=== PATIENT | female | born 1995 | race American Indian/Alaskan Native ===

== ENCOUNTER 2019-10-19 13:55 | Emergency (ER) | payer SELFPAY ==
--- NOTE | 2019-10-19 15:49 | Event Note ---
ED Screening Note ED Screening Note: states she is 6 weeks , [facility] is her NEWS ASSISTANT states she is having vaginal bleeding that began today no abd pain /P:2/A:0 PMHx: none no allergies to meds LNMP september 03 This initial assessment/diagnostic orders/clinical plan/treatment(s) is/are subject to change based on patients health status, clinical progression and re- assessment by fellow clinical providers in the ED. Further treatment and workup at subsequent clinical providers discretion. Patient/guardian urged not to elope from the ED as their condition may be serious if not clinically assessed and managed. Initial orders include: labs, UA
[2019-10-19 16:17] LABS: Bilirubin,Urine NEG (Negative); Blood,Urine LG (Negative); Color,Urine Red (Yellow); Mucus,Urine 3+ /HPF
[2019-10-19 16:18] LABS: RBC,Urine > 182.0 /HPF (0.0-6.0); WBC,Urine > 182.0 /HPF (0.0-6.0)
[2019-10-19 16:27] LABS: Basophils % (Auto) 0.7 % (0.0-1.8); Eosinophils % (Auto) 0.2 % (0.0-4.3); Hematocrit 36.1 % (30.3-42.9); Hemoglobin 12.7 gm/dl (10.1-14.3); Lymphocytes # (Auto) 2.2 K/mm3 (1.2-5.4); Lymphocytes % (Auto) 30.9 % (13.4-35.0); Mean Corpuscular HGB Conc 35 % (30-34); Mean Corpuscular Volume 92 fl (79-97); Monocytes # (Auto) 0.6 K/mm3 (0.0-0.8); Monocytes % (Auto) 8.1 % (0.0-7.3); Platelet Count 343 K/mm3 (140-440); Red Blood Count 3.95 M/mm3 (3.65-5.03); Red Cell Distribution Width 14.1 % (13.2-15.2)
[2019-10-19 17:48] VITALS: BP 108/65
--- NOTE | 2019-10-19 18:57 | Ultrasound Report ---
Early obstetrical ultrasound INDICATION: , vaginal bleeding Transabdominal and endovaginal studies were performed. Uterus is strongly anteflexed. Uterus measures 9.8 x 6.3 x 6.3 cm. In the fundal area a gestational s ac is seen with a double wall. No pole or yolk sac are identified. Sac is elongated. By sac siz e dating would correlate to 6 weeks 5 days which corresponds with clinical dating. Adjacent to the ge stational sac is an ovoid mildly hypoechoic area measuring 3.4 cm in length and 14 mm in thickness. T his probably represents an area of focal subchorionic hemorrhage. Left ovary shows small follicular-type cysts and measures 2.5 cm in length. Right ovary measures 3.6 cm in length and shows a slightly complex 2.6 cm probable corpus luteum cyst. Flow is noted in both o varies. Minimal free fluid is seen. IMPRESSION: Intrauterine gestational sac is seen though I cannot confirm viability. Moderate size are a of probable implantational bleed is seen. Signer Name: Jonathan Silver MD Signed: 10/19/2019 6:53 PM Workstation Name: [id number]
--- NOTE | 2019-10-19 19:12 | Emergency Department Report ---
ED Female HPI - General Chief complaint: Vaginal Bleeding Stated complaint: VAGINAL BLEEDING Time Seen by Provider: 10/19/19 15:46 Source: patient Mode of arrival: Ambulatory Limitations: No Limitations - History of Present Illness Initial comments: 24 yo female states she's 6 weeks . LMP 09/03/19. States she woke up with vaginal bleeding this morning bright red blood. Prior to coming to hospital bleeding subside. She denies abdominal pain. Reports urinary frequency. . She has 5 month old . Denies any other symptoms. MD Complaint: vaginal bleeding Consistency: now resolved Improves with: none Worsens with: none Are you Now?: Yes (6 weeks ) Last Menstrual Period: 09/03/19 EDC: 06/09/20 Associated Symptoms: vaginal bleeding. denies: abdominal pain, nausea/vomiting, fever/chills, headaches, dysuria, hematuria, rash, seizure, shortness of breath, syncope, weakness - Related Data Sexually active: Yes : 3 Para: 2 A: 0 Previous Rx's Medication Instructions Recorded Last Taken Type Vit 90/Iron Fum/Folic 1 each PO QDAY #30 tablet 07/22/14 Unknown Rx [ Formula] cephALEXin [Keflex] 500 mg PO Q12HR 7 Days #14 cap 10/20/19 Unknown Rx Allergies Allergy/AdvReac Type Severity Reaction Status Date / Time banana Allergy Hives Verified 03/07/15 14:43 ED Review of Systems ROS: Stated complaint: VAGINAL BLEEDING Other details as noted in HPI Comment: All other systems reviewed and negative Constitutional: no symptoms reported Respiratory: no symptoms reported Endocrine: no symptoms reported Gastrointestinal: denies: abdominal pain, nausea, constipation, hematemesis Genitourinary: frequency, other (vaginal bleeding ) Skin: denies: rash, lesions, change in color, change in hair/nails Neurological: denies: headache Psychiatric: denies: as per HPI, anxiety, depression Hematological/Lymphatic: denies: as per HPI ED Past Medical Hx - Past Medical History Previous Medical History?: Yes Hx Hypertension: No Hx Diabetes: No Hx Deep Vein Thrombosis: No Hx Renal Disease: No Hx Sickle Cell Disease: No Hx Seizures: No Hx Asthma: No Hx COPD: No Additional medical history: adhd - Surgical History Past Surgical History?: No - Social History Smoking Status: Never Smoker Substance Use Type: None - Medications Home Medications: Home Medications Medication Instructions Recorded Confirmed Last Taken Type Vit 90/Iron Fum/Folic 1 each PO QDAY #30 tablet 07/22/14 03/07/15 Unknown Rx [ Formula] cephALEXin [Keflex] 500 mg PO Q12HR 7 Days #14 cap 10/20/19 Unknown Rx ED Physical Exam - General Limitations: No Limitations General appearance: alert, in no apparent distress - Head Head exam: Absent: atraumatic - Eye Eye exam: Absent: normal appearance - ENT ENT exam: Present: normal exam - Respiratory Respiratory exam: Present: normal lung sounds bilaterally - Cardiovascular Cardiovascular Exam: Present: regular rate, normal heart sounds - GI/Abdominal GI/Abdominal exam: Present: soft. Absent: distended, tenderness, guarding - Speculum exam: Present: other (Pt refused EXCAVATOR OPERATOR exam states she's tired of getting dressed and undressed and has been her too long. She reports that vaginal bleeding is now only spotting) ED Course Vital Signs 10/19/19 17:45 Temperature 98.1 F Pulse Rate 72 Respiratory 18 Rate Blood Pressure 108/65 [Right] O2 Sat by Pulse 100 Oximetry - Reevaluation(s) Reevaluation #1: 10/19/19 19:[address] Ledesma all findings discussed early vs miscarriage. Pt to [facility] Medical Decision Making - Lab Data Result diagrams: 10/19/19 15:56 - Radiology Data Radiology results: report reviewed ABD US Uterus is strongly anteflexed. Uterus measures 9.8 x 6.3 x 6.3 cm. In the fundal area a gestational sac is seen with a double wall. No pole or yolk sac are identified. Sac is elongated. By sac size dating would correlate to 6 weeks 5 days which corresponds with clinical dating. Adjacent to the gestational sac is an ovoid mildly hypoechoic area measuring 3.4 cm in length and 14 mm in thickness. This probably represents an area of focal subchorionic hemorrhage. Left ovary shows small follicular-type cysts and measures 2.5 cm in length. Right ovary measures 3.6 cm in length and shows a slightly complex 2.6 cm probable corpus luteum cyst. Flow is noted in both ovaries. Minimal free fluid is seen. IMPRESSION: Intrauterine gestational sac is seen though I cannot confirm viability. Moderate size area of probable implantational bleed is seen - Medical Decision Making 24 YO female aprox 6 weeks . Developed vaginal bleeding at home HCG quant:[id number] US : Intrauterine gestational sac is seen though I cannot confirm viability. Moderate size area of probable implantational bleed is seen RH + h/h WNL Discuss with OB-records section supervisor Dr. gutierrez Plan is to d/c home threatened ab vs eary Follow up in 2 days for repeat HCG Quant Safe for discharge home with outpatient follow up. All findings discussed with patient Critical Care Time: No Critical care attestation.: If time is entered above; I have spent that time in minutes in the direct care of this critically ill patient, excluding procedure time. ED Disposition Clinical Impression: Threatened in first trimester, Vaginal bleeding during UTI (urinary tract infection) Qualifiers: Urinary tract infection type: acute cystitis Hematuria presence: with hematuria Qualified Code(s): N30.01 - Acute cystitis with hematuria Disposition: TO HOME OR SELFCARE Is pt being admited?: No Does the pt Need Aspirin: No Condition: Stable Instructions: Threatened Miscarriage (ED), Urinary Tract Infection in Women (ED) Additional Instructions: Rest increased oral hydration . You must follow up with [facility] in 2 days to have a repeat HCG quant done. If you cannot be seen by [facility] in 2 days return to the ER to have HCG quant done. Return to ER immediatedly for worsening abd pain, fever chills or increased vaginal bleeding 4-6 pads in [place] [id number] Your Blood type is O positive Prescriptions: cephALEXin [Keflex] 500 mg PO Q12HR 7 Days #14 cap Time of Disposition: 19:58
== END 2019-10-19 20:10 | disposition home or self-care (01) ==
LOC: ED 13:55
DX: O20.0 Threatened abortion (principal); O23.41 Unspecified infection of urinary tract in pregnancy, first trimester; Z91.018 Allergy to other foods; Z3A.01 Less than 8 weeks gestation of pregnancy
CPT/HCPCS: 36415; 76801; 76817; 81001; 84702; 85025; 86900; 86901

== ENCOUNTER 2022-06-03 20:48 | Emergency (ER) | payer MEDICAID ==
[2022-06-03 22:28] LABS: Basophils % (Auto) 0.5 % (0.0-1.8); Eosinophils # (Auto) 0.1 K/mm3 (0.0-0.4); Eosinophils % (Auto) 1.2 % (0.0-4.3); Hemoglobin 12.7 gm/dl (10.1-14.3); Lymphocytes # (Auto) 2.5 K/mm3 (1.2-5.4); Lymphocytes % (Auto) 42.4 % (13.4-35.0); Mean Corpuscular HGB Conc 34 % (30-34); Mean Corpuscular Volume 91 fl (79-97); Monocytes # (Auto) 0.5 K/mm3 (0.0-0.8); Monocytes % (Auto) 8.3 % (0.0-7.3); Platelet Count 363 K/mm3 (140-440); Red Blood Count 4.09 M/mm3 (3.65-5.03); Red Cell Distribution Width 16.1 % (13.2-15.2)
[2022-06-03 22:54] LABS: Mucus,Urine FEW /HPF
[2022-06-03 23:11] LABS: Bilirubin,Urine Negative (Negative); Blood,Urine Negative (Negative); Color,Urine Yellow (Yellow); Urobilinogen,Urine < 2.0 mg/dL (<2.0)
--- NOTE | 2022-06-04 01:58 | Emergency Department Report ---
ED Female HPI - General Chief complaint: Vaginal Bleeding Stated complaint: ABD PAIN/VAGINAL BLEEDING Time Seen by Provider: 06/04/22 01:50 Source: patient Mode of arrival: Ambulatory Limitations: No Limitations - History of Present Illness Initial comments: 27 y/o female c/o of menses starting early and looking a little wierd now worried about being as her home test was in conclusive. MD Complaint: vaginal bleeding -: Gradual Severity: mild Improves with: none Worsens with: none Are you Now?: No Associated Symptoms: denies other symptoms. denies: vaginal discharge, vaginal bleeding, nausea/vomiting, loss of appetite, dysuria, hematuria, shortness of breath, syncope - Related Data Sexually active: Yes Previous Rx's Medication Instructions Recorded Last Taken Type Vit 90/Iron Fum/Folic 1 each PO QDAY #30 tablet 07/22/14 Unknown Rx [ Formula] cephALEXin [Keflex] 500 mg PO Q12HR 7 Days #14 cap 10/20/19 Unknown Rx Allergies Allergy/AdvReac Type Severity Reaction Status Date / Time banana Allergy Hives Verified 03/07/15 14:43 ED Review of Systems ROS: Stated complaint: ABD PAIN/VAGINAL BLEEDING Other details as noted in HPI Comment: All other systems reviewed and negative ED Past Medical Hx - Past Medical History Hx Hypertension: No Hx Diabetes: No Hx Deep Vein Thrombosis: No Hx Renal Disease: No Hx Sickle Cell Disease: No Hx Seizures: No Hx Asthma: No Hx COPD: No Additional medical history: adhd - Social History Smoking Status: Never Smoker Substance Use Type: None - Medications Home Medications: Home Medications Medication Instructions Recorded Confirmed Last Taken Type Vit 90/Iron Fum/Folic 1 each PO QDAY #30 tablet 07/22/14 03/07/15 Unk nown Rx [ Formula] cephALEXin [Keflex] 500 mg PO Q12HR 7 Days #14 cap 10/20/19 Unknown Rx ED Physical Exam - General Limitations: No Limitations General appearance: alert, in no apparent distress - Head Head exam: Present: atraumatic, normocephalic - Eye Eye exam: Present: normal appearance, PERRL, EOMI Pupils: Present: normal accommodation - ENT ENT exam: Present: normal exam, normal orophraynx, mucous membranes moist - Neck Neck exam: Present: normal inspection - Respiratory Respiratory exam: Present: normal lung sounds bilaterally. Absent: respiratory distress - Cardiovascular Cardiovascular Exam: Present: regular rate, normal rhythm. Absent: systolic murmur, diastolic murmur, rubs, gallop - GI/Abdominal GI/Abdominal exam: Present: soft, normal bowel sounds - Extremities Exam Extremities exam: Present: normal inspection - Back Exam Back exam: Present: normal inspection - Neurological Exam Neurological exam: Present: alert, oriented X3 - Psychiatric Psychiatric exam: Present: normal affect, normal mood - Skin Skin exam: Present: warm, dry, intact, normal color. Absent: rash ED Medical Decision Making - Lab Data Result diagrams: 06/03/22 21:46 Lab Results 06/03/22 06/03/22 06/03/22 Range/Units 21:46 21:46 21:46 WBC 5.8 (4.5-11.0) K/mm3 RBC 4.09 (3.65-5.03) M/mm3 Hgb 12.7 (10.1-14.3) gm/dl Hct 37.0 (30.3-42.9) % MCV 91 (79-97) fl MCH 31 (28-32) pg MCHC 34 (30-34) % RDW 16.1 H (13.2-15.2) % Plt Count 363 (140-440) K/mm3 Lymph % (Auto) 42.4 H (13.4-35.0) % [place] % (Auto) 8.3 H (0.0-7.3) % Eos % (Auto) 1.2 (0.0-4.3) % Baso % (Auto) 0.5 (0.0-1.8) % Lymph # (Auto) 2.5 (1.2-5.4) K/mm3 [place] # (Auto) 0.5 (0.0-0.8) K/mm3 Eos # (Auto) 0.1 (0.0-0.4) K/mm3 Baso # (Auto) 0.0 (0.0-0.1) K/mm3 Seg Neutrophils % 47.6 (40.0-70.0) % Seg Neutrophils # 2.8 (1.8-7.7) K/mm3 HCG, Qual Negative (Negative) HCG, Quant < 2 (0-4) mIU/mL Urine Color (Yellow) Urine Turbidity (Clear) Urine pH (5.0-7.0) Ur Specific [place] (1.003-1.030) Urine Protein (Negative) mg/dL Urine Glucose (UA) (Negative) mg/dL Urine Ketones (Negative) mg/dL Urine Blood (Negative) Urine Nitrite (Negative) Ur Reducing Substances Urine Bilirubin (Negative) Urine Ictotest Urine Urobilinogen (<2.0) mg/dL Ur Leukocyte Esterase (Negative) Urine WBC (Auto) (0.0-6.0) /HPF Urine RBC (Auto) (0.0-6.0) /HPF U Epithel Cells (Auto) (0-13.0) /HPF Urine Mucus /HPF Urine Yeast (Budding) /HPF 06/03/22 Range/Units Unknown WBC (4.5-11.0) K/mm3 RBC (3.65-5.03) M/mm3 Hgb (10.1-14.3) gm/dl Hct (30.3-42.9) % MCV (79-97) fl MCH (28-32) pg MCHC (30-34) % RDW (13.2-15.2) % Plt Count (140-440) K/mm3 Lymph % (Auto) (13.4-35.0) % [place] % (Auto) (0.0-7.3) % Eos % (Auto) (0.0-4.3) % Baso % (Auto) (0.0-1.8) % Lymph # (Auto) (1.2-5.4) K/mm3 [place] # (Auto) (0.0-0.8) K/mm3 Eos # (Auto) (0.0-0.4) K/mm3 Baso # (Auto) (0.0-0.1) K/mm3 Seg Neutrophils % (40.0-70.0) % Seg Neutrophils # (1.8-7.7) K/mm3 HCG, Qual (Negative) HCG, Quant (0-4) mIU/mL Urine Color Yellow (Yellow) Urine Turbidity Clear (Clear) Urine pH 6.0 (5.0-7.0) Ur Specific [place] 1.015 (1.003-1.030) Urine Protein 30 mg/dl (Negative) mg/dL Urine Glucose (UA) Negative (Negative) mg/dL Urine Ketones Negative (Negative) mg/dL Urine Blood Negative (Negative) Urine Nitrite Negative (Negative) Ur Reducing Substances Not Reportable Urine Bilirubin Negative (Negative) Urine Ictotest Not Reportable Urine Urobilinogen < 2.0 (<2.0) mg/dL Ur Leukocyte Esterase Negative (Negative) Urine WBC (Auto) 5.0 (0.0-6.0) /HPF Urine RBC (Auto) 9.0 (0.0-6.0) /HPF U Epithel Cells (Auto) 2.0 (0-13.0) /HPF Urine Mucus Few /HPF Urine Yeast (Budding) Few /HPF Critical care attestation.: If time is entered above; I have spent that time in minutes in the direct care of this critically ill patient, excluding procedure time. ED Disposition Clinical Impression: Negative test, Vaginal bleeding Disposition: 01 HOME / SELF CARE / HOMELESS Is pt being admited?: No Does the pt Need Aspirin: No Condition: Stable Instructions: Abnormal Uterine Bleeding, Home Test Information, Dysfunctional Uterine Bleeding Referrals: [facility] [Provider Group] - 3-5 Days
[2022-06-04 03:05] VITALS: BP 113/60
== END 2022-06-04 02:05 | disposition home or self-care (01) ==
LOC: ED 20:48
DX: N93.9 Abnormal uterine and vaginal bleeding, unspecified (principal); Z32.02 Encounter for pregnancy test, result negative; Z91.02 Food additives allergy status
CPT/HCPCS: 36415; 81001; 84702; 84703; 85025; 99283